=== PATIENT | male | born 1975 | race Caucasian/White ===

== ENCOUNTER 2019-08-15 16:45 | Emergency (ER) | payer SELFPAY ==
--- NOTE | 2019-08-15 17:08 | ED ---
Syncope/Near Syncope - HPI Summary HPI Summary: 43-year-old male with no significant past medical history presents to the emergency department today complaining of syncope and head injury. 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 Patient is unsure what happened however he remembers awaking after an unknown period of time with a presumed loss of consciousness with bleeding to the left forehead due to head injury which he believes is from hitting his head on a sink while falling. Patient is not on blood thinners. Patient also complains of coccygeal pain as well as generalized muscle aches, headache, neck pain. Patient denies incontinence but does endorse tongue biting. This was an unwitnessed syncopal episode. Patient has no known family history or personal history of seizures. At this time patient has dressing, splint hospital stretcher in the GCS 15. Patient denies fevers, chest pain, abdominal pain, pain with urination, nausea, vomiting and diarrhea. Patient denies alcohol use or recreational drug use. - History Of Current Complaint Chief Complaint: EDFall Time Seen by Provider: 08/15/19 16:52 Hx Obtained From: Patient Onset/Duration: Sudden Onset, Resolved Timing: Constant Context: Unwitnessed Activity At Onset: Unknown Associated Head Trauma: Yes Associated Signs And Symptoms: Head Trauma (Recent), Headache - Allergies/Home Medications Allergies/Adverse Reactions: Allergies Allergy/AdvReac Type Severity Reaction Status Date / Time Unable to Assess Allergy Verified 08/15/19 16:52 Home Medications: Home Medications Citalopram TAB* [CeleXA TAB*] 20 mg PO DAILY 08/15/19 [History Confirmed ] PMH/Surg Hx/FS Hx/Imm Hx Infectious Disease History: No Infectious Disease History: Denies: Traveled Outside the [place] in Last 30 Days Review of Systems Constitutional: Negative Eyes: Negative ENT: Negative Cardiovascular: Negative Respiratory: Negative Gastrointestinal: Negative Genitourinary: Negative Negative: incontinence Musculoskeletal: Negative Skin: Negative Positive: Headache, Syncope. Negative: Weakness, Paresthesia, Numbness, Slurred Speech Psychological: Normal All Other Systems Reviewed And Are Negative: Yes Physical Exam - Summary Physical Exam Summary: There is a 1 cm in length small linear laceration noted superior to the left eye near the eyebrow. Patient has full range of motion of the neck. GCS 15. Patient has no significant midline tenderness to palpation of the cervical spine. Patient has no changes in vision. There is no evidence of incontinence or significant tongue biting. No evidence of postictal state. Triage Information Reviewed: Yes Vital Signs On Initial Exam: Initial Vitals Temp Pulse Resp BP Pulse Ox 97.9 F 90 16 159/97 96 08/15/19 16:48 08/15/19 16:48 08/15/19 16:48 08/15/19 16:48 08/15/19 16:48 Vital Signs Reviewed: Yes Appearance: Positive: Well-Appearing, No Pain Distress, Well-Nourished Skin: Positive: Warm, Skin Color Reflects Adequate Perfusion Eyes: Positive: EOMI, BESS ENT: Positive: Hearing grossly normal Respiratory/Lung Sounds: Positive: Clear to Auscultation, Breath Sounds Present Cardiovascular: Positive: RRR, S1, S2 Abdomen Description: Positive: Nontender, Soft Bowel Sounds: Positive: Present Musculoskeletal: Positive: Strength/ROM Intact Neurological: Positive: Sensory/Motor Intact, Alert, Oriented to Person Place, Time, Normal Gait, Finger to Nose, Facial Symmetry, Speech Normal. Negative: Receptive Aphasia, Expressive Aphasia, Cerebellar Dysfunction, Ataxic Gait Psychiatric: Positive: Normal, Affect/Mood Appropriate AVPU Assessment: Alert Procedures - Sedation Patient Received Moderate/Deep Sedation with Procedure: No - Laceration/Wound Repair 1 Location: face Description: Linear Length, Depth and Shape: 1cm length Irrigated w/ Saline (ccs): 100 Laceration/Wound Explored: clean Closure: Skin Adhesive Diagnostics - Vital Signs Vital Signs Temp Pulse Resp BP Pulse Ox 08/15/19 16:48 97.9 F 90 16 159/97 96 - Laboratory Result Diagrams: 08/15/19 17:24 08/15/19 17:24 Lab Statement: Any lab studies that have been ordered have been reviewed, and results considered in the medical decision making process. Course/Dx Course Of Treatment: Patient was evaluated emergency department today for syncopal episode with head injury. Vitals noted and stable. GCS 15. Neurological exam is within normal limits. EKG was done promptly which shows no evidence any. Normal sinus rhythm at a rate of 94 bpm. Normal axis, PA, QT interval. No T wave inversions or evidence of ischemia. There are no prior EKGs available for comparison. Laboratory studies returned showing no leukocytosis or evidence of anemia. Lactic acid is 1.6 not suggestive of seizure activity. There is no other evidence of seizure activity such as post ictal state, incontinence, tongue biting. There are no significant electrolyte disturbances. Troponin 0.00. TSH WNL. There is minor hypomagnesemia at 1.5. Liver enzymes are mildly elevated, patient has no abdominal pain and there are no priors available for comparison. Orthostatic vital signs are negative for orthostatic hypotension. CT of the cervical spine and brain showed no evidence of intracranial hemorrhage or fracture. Laceration was cleaned and approximated using Dermabond skin glue. There is no evidence of acute medical pathology as sequela of the patients fall or explanation to why patient had syncopal episode today. Patient discharged to outpatient follow-up with PCP for syncope as well as reevaluation of transaminitis and elevated liver enzymes. - Diagnoses Differential Diagnosis/HQI/PQRI: Positive: Dysrhythmia, Hypoglycemia, Hypovolemia, Metabolic Reaction, Seizure, Transient Ischemic Attack, Vasovagal Episode Provider Diagnoses: Syncope, Head injury, Laceration of eyebrow, Transaminitis Discharge ED - Sign-Out/Discharge Documenting (check all that apply): Patient Departure - Discharge Plan Condition: Stable Disposition: HOME Patient Education Materials: Syncope (ED) Referrals: No Primary Care Phys,NOPCP [Primary Care Provider] - [facility] [Outside] - 4 Days Additional Instructions: There is no evidence that you have sustained any significant injury or trauma as a result of your fall today. Laboratory studies show no explanation as to what caused your syncopal episode today however please return to activity as tolerated and take it easy for the next few days. It was also noted during your stay that your liver enzymes are mildly elevated. This is likely benign however please follow-up with [facility] in 3-4 days or your PCP for further evaluation and management of your syncopal episode and elevated liver enzymes. These return to this emergency department immediately should you develop any new or worsening symptoms. - Billing Disposition and Condition Condition: STABLE Disposition: Home
[2019-08-15 17:39] LABS: ABS Lymphocytes 0.7 10^3/ul (1.0-4.8); ABS Monocytes 0.7 10^3/ul (0-0.8); ABS Neutrophils 4.5 10^3/ul (1.5-7.7); Eosinophil % 0.4 %; Hematocrit 43 % (42-52); Hemoglobin 15.1 g/dL (14.0-18.0); Lymphocyte % 11.3 %; Mean Corpuscular HGB Conc 35 g/dL (31-36); Mean Corpuscular Hemoglobin 37 pg (27-31); Mean Corpuscular Volume 105 fL (80-94); Mean Platelet Volume 7.6 fL (7.4-10.4); Nucleated Red Blood Cells % 0.1; Platelet Count 158 10^3/uL (150-450); Red Blood Count 4.14 10^6 /uL (4.18-5.48); Red Cell Distribution Width 14 % (10-15)
[2019-08-15 17:51] LABS: Albumin 4.4 g/dL (3.2-5.2); Albumin/Globulin Ratio 1.7 (1-3); BUN/Creatinine Ratio 12.3 (8-20); Calcium 9.8 mg/dL (8.6-10.3); EGFR African American 140.6 (>60); EGFR Non-African American 116.2 (>60); Globulin 2.6 g/dL (2-4); Magnesium 1.5 mg/dL (1.9-2.7); Potassium 4.1 mmol/L (3.5-5.0); Total Bilirubin 1.2 mg/dL (0.2-1.0)
[2019-08-15 18:02] LABS: TSH (Thyroid Stimulating Horm) 1.38 mcIU/mL (0.34-5.60)
[2019-08-15 18:17] VITALS: BP 130/90
== END 2019-08-15 18:16 | disposition home or self-care (01) ==
LOC: ED 16:45
DX: S09.90XA Unspecified injury of head, initial encounter (principal); S01.112A Laceration without foreign body of left eyelid and periocular area, initial encounter; R55 Syncope and collapse; W22.09XA Striking against other stationary object, initial encounter; R74.0 Nonspecific elevation of levels of transaminase and lactic acid dehydrogenase [LDH]; Y92.9 Unspecified place or not applicable; Z79.899 Other long term (current) drug therapy; R94.31 Abnormal electrocardiogram [ECG] [EKG]
CPT/HCPCS: 36415; 70450; 72125; 80053; 83605; 83735; 84443; 84484; 85025; 93005; 99282